=== PATIENT | female | born 1970 | race Hispanic/Latino ===

== ENCOUNTER 2018-01-03 10:11 | Day surgery (SDC) | payer MEDICAID ==
[~2018-01-03] VITALS: Ht 162.6 cm; Wt 86.2 kg
[~2018-01-03 10:11] MED LIST: BUTA-256 PO; CETI10TA86 PO; CITA10TA7 PO; DICL100G31 TP; ERGO500014 PO; FERS325 PO; FLUT16H NASAL; GABA300S PO; LOSA25TA21 PO; MELO-108 PO; METH750T3 PO; ONDA4TAB7 PO; PANT40TA25 PO; PRAV10TA39 PO; PROVENTIL IH; SODIUM CHLORIDE 0.9% 1000ML 1,000 ML IV ONE; TRAZ-187 PO; TYL3 PO
[2018-01-03 11:11] VITALS: BP 134/60
[2018-01-03 11:32] VITALS: BP 112/56
== END 2018-01-03 12:25 | disposition home or self-care (01) ==
LOC: DAH 10:11 → ENDO 10:11
PROVIDERS: ATTEND Internal Medicine Gastroenterology
DX: K29.50 Unspecified chronic gastritis without bleeding (principal); K31.9 Disease of stomach and duodenum, unspecified; J45.909 Unspecified asthma, uncomplicated; F41.9 Anxiety disorder, unspecified; F32.9 Major depressive disorder, single episode, unspecified; M79.7 Fibromyalgia; E11.9 Type 2 diabetes mellitus without complications; M19.90 Unspecified osteoarthritis, unspecified site; M81.0 Age-related osteoporosis without current pathological fracture; D50.0 Iron deficiency anemia secondary to blood loss (chronic); Z90.710 Acquired absence of both cervix and uterus; Z98.890 Other specified postprocedural states; Z79.899 Other long term (current) drug therapy; K21.9 Gastro-esophageal reflux disease without esophagitis; Z88.8 Allergy status to other drugs, medicaments and biological substances; E66.9 Obesity, unspecified; Z68.32 Body mass index [BMI] 32.0-32.9, adult; Z83.3 Family history of diabetes mellitus; Z80.0 Family history of malignant neoplasm of digestive organs
CPT/HCPCS: 43239; 88305; 88312; A4606; J7030